=== PATIENT | female | born 1955 | race Hispanic/Latino ===

== ENCOUNTER 2023-10-05 07:04 | Observation (INO) | payer OTHER ==
[~2023-10-05] VITALS: Ht 154.9 cm; Wt 70.8 kg
[2023-10-05 07:43] LABS: BASOPHILS # (AUTO) 0.04 K/uL (0.00-0.20); BASOPHILS % (AUTO) 0.3 % (0.0-5.0); EOSINOPHILS # (AUTO) 0.01 K/uL (0.00-0.70); EOSINOPHILS % (AUTO) 0.1 % (0.0-8.0); HEMATOCRIT 33.9 % (36-48); IMMATURE GRANULOCYTE ABSOLUTE 0.11 K/uL (0-1); LYMPHOCYTES # (AUTO) 1.4 K/uL (1.0-4.8); LYMPHOCYTES % (AUTO) 9.7 % (21.0-51.0); MEAN CORPUSCULAR HEMOGLOBIN 29.1 pg (27.0-33.0); MEAN CORPUSCULAR HGB CONC 34.2 g/dL (32.0-36.0); MEAN CORPUSCULAR VOLUME 85.2 fL (79-99); MONOCYTES # (AUTO) 0.7 K/uL (0.1-1.0); MONOCYTES % (AUTO) 5.1 % (3.0-13.0); NEUTROPHILS # (AUTO) 11.8 K/uL (1.8-7.7); PLATELET COUNT (AUTO) 309 K/uL (130-400); RED BLOOD CELL COUNT(AUTO) 3.98 MIL/uL (4.00-5.50); RED CELL DISTRIBUTION WIDTH 12.4 % (11.0-15.5); WHITE BLOOD COUNT (AUTO) 14.1 K/uL (4.8-10.8)
[2023-10-05 07:57] LABS: ALBUMIN 4.1 g/dL (3.5-5.0); BILIRUBIN,TOTAL 0.3 mg/dL (0.2-1.0); CREATININE 1.7 mg/dL (0.5-1.5); POTASSIUM 3.8 mmol/L (3.5-5.1); TOTAL PROTEIN, SERUM 8.1 g/dL (6.0-8.3)
[2023-10-05 08:30] LABS: APPEARANCE,URINE CLEAR (CLEAR); BILIRUBIN,URINE NEGATIVE (NEGATIVE); COLOR,URINE LIGHT-YELLOW (YELLOW); GLUCOSE, URINE (UA) >=1000 mg/dL (NEGATIVE); KETONES,URINE 5 mg/dL (NEGATIVE); LEUKOCYTE ESTERASE ,URINE NEGATIVE Leu/uL (NEGATIVE); NITRATE,URINE NEGATIVE (NEGATIVE); OCCULT BLOOD,URINE LARGE (NEGATIVE); PROTEIN,URINE 10 mg/dL (NEGATIVE); UROBILINOGEN,URINE 0.2 mg/dL (0.2-1.0)
[2023-10-05] MEDS ORDERED: FENTANYL CITRATE PF 50 MCG/1 ML 2ML VIAL IVP ONE ×2 (08:30→09:30)
[2023-10-05 08:33] LABS: ADD UA MICROSCOPIC YES
[2023-10-05 08:38] LABS: RBC,URINE T /HPF (0-1)
[2023-10-05 08:39] LABS: BACTERIA,URINE None Seen /HPF (None Seen); MUCUS,URINE Rare LPF (None Seen); SQUAMOUS EPITHELIAL CELL,UR Rare /HPF (0-2)
[2023-10-05] MEDS ORDERED: ONDANSETRON 4MG INJ IVP ONE (09:30)
[2023-10-05] MEDS ORDERED: GUAIFENESIN-DM 200/20 MG 10 ML PO PRN (12:00)
[2023-10-05] MEDS ORDERED: MAGNESIUM 2GM PREMIX 50ML 50 ML IV PRN (12:00)
[2023-10-05] MEDS ORDERED: ONDANSETRON 4MG INJ IV PRN (12:00)
[2023-10-05] MEDS ORDERED: ZOLPIDEM TARTRATE 5 MG TAB PO PRN (12:00)
[2023-10-05] MEDS ORDERED: DiphenhydrAMINE HCL 50 MG/ML VIAL IV PRN (12:00)
[2023-10-05] MEDS ORDERED: POTASSIUM CHLORIDE 20MEQ/100ML 100 ML IV PRN ×2 (12:00)
[2023-10-05] MEDS ORDERED: POTASSIUM CHLORIDE 10% ELIXIR 20 MEQ/15 ML UDCUP PO PRN (12:00)
[2023-10-05] MEDS ORDERED: ALPRAZOLAM 0.5 MG TABLET PO PRN (12:00)
[2023-10-05] MEDS ORDERED: POLYETHYLENE GLYCOL 3350 17 GM POWD.PACK PO PRN (12:00)
[2023-10-05] MEDS ORDERED: DIPHENHYDRAMINE HCL 25 MG CAPSULE PO PRN (12:00)
[2023-10-05] MEDS ORDERED: DOCUSATE SODIUM 100 MG CAP PO PRN (12:00)
[2023-10-05] MEDS ORDERED: ACETAMINOPHEN 325 MG TAB PO PRN ×2 (12:00)
[2023-10-05] MEDS ORDERED: LACTULOSE 20 GM/30 ML UDCUP PO PRN (12:00)
[2023-10-05] MEDS ORDERED: KCL 20 MEQ ERTAB PO PRN (12:00)
[2023-10-05] MEDS ORDERED: NITROGLYCERIN 0.4 MG SL TAB SL PRN (12:00)
[2023-10-05] MEDS ORDERED: HYDROMORPHONE 0.5 MG SYG (0.5MG/0.5ML) ONE (12:01)
[2023-10-05] MEDS: CEFTRIAXONE 2GM VIAL IVPB SCH (13:16)
[2023-10-05] MEDS: HYDROMORPHONE 1 MG INJ IVP PRN ×2 (17:35→20:27)
[2023-10-05 20:00] VITALS: BP 107/44; PULSE 70; RESP 18; O2SAT 99
[2023-10-05] MEDS: FAMOTIDINE 20MG TAB PO SCH (20:27)
[2023-10-05] MEDS: INSULIN HUMULIN R 100 UNIT/ML 3ML SQ SCH (21:00)
[2023-10-06] VITALS (7 sets, daily range): BP systolic 102–144; BP diastolic 48–71; PULSE 71–77; RESP 18–20; O2SAT 96
[2023-10-06] MEDS: 0.9%NACL 1000ML 1,000 ML IV SCH ×3 (03:30→13:30)
[2023-10-06] MEDS: INSULIN HUMULIN R 100 UNIT/ML 3ML SQ SCH ×4 (06:38→21:18)
[2023-10-06 07:52] LABS: BASOPHILS # (AUTO) 0.03 K/uL (0.00-0.20); BASOPHILS % (AUTO) 0.3 % (0.0-5.0); EOSINOPHILS # (AUTO) 0.01 K/uL (0.00-0.70); EOSINOPHILS % (AUTO) 0.1 % (0.0-8.0); HEMATOCRIT 30.8 % (36-48); IMMATURE GRANULOCYTE ABSOLUTE 0.05 K/uL (0-1); LYMPHOCYTES # (AUTO) 2.1 K/uL (1.0-4.8); LYMPHOCYTES % (AUTO) 20.7 % (21.0-51.0); MEAN CORPUSCULAR HEMOGLOBIN 28.9 pg (27.0-33.0); MEAN CORPUSCULAR HGB CONC 33.8 g/dL (32.0-36.0); MEAN CORPUSCULAR VOLUME 85.6 fL (79-99); MONOCYTES # (AUTO) 0.8 K/uL (0.1-1.0); MONOCYTES % (AUTO) 8.4 % (3.0-13.0); PLATELET COUNT (AUTO) 254 K/uL (130-400)
[2023-10-06 08:09] LABS: CREATININE 1.4 mg/dL (0.5-1.5); MAGNESIUM 1.4 mg/dL (1.80-2.40); POTASSIUM 3.9 mmol/L (3.5-5.1)
[2023-10-06] MEDS ORDERED: SIMV-43 PO (09:12)
[2023-10-06] MEDS ORDERED: METF-444 PO (09:12)
[2023-10-06] MEDS ORDERED: OMEP20CA12 PO (09:12)
[2023-10-06] MEDS ORDERED: GLIP10TA19 PO (09:12)
[2023-10-06] MEDS ORDERED: AMLO-257 PO (09:12)
[2023-10-06] MEDS ORDERED: LISI1TAB53 PO (09:12)
[2023-10-06] MEDS: CEFTRIAXONE 2GM VIAL IVPB SCH (12:46)
[2023-10-06] MEDS ORDERED: SIMVASTATIN 20 MG TABLET PO SCH (21:00)
[2023-10-06] MEDS: FAMOTIDINE 20MG TAB PO SCH (21:14)
[2023-10-06] MEDS: TAMSULOSIN HCL 0.4 MG CAP.ER.24H PO SCH (23:51)
[2023-10-07 00:36] VITALS: BP 136/71; PULSE 75; RESP 18
[2023-10-07] MEDS: 0.9%NACL 1000ML 1,000 ML IV SCH (02:45)
[2023-10-07 03:55] LABS: BASOPHILS # (AUTO) 0.02 K/uL (0.00-0.20); BASOPHILS % (AUTO) 0.3 % (0.0-5.0); EOSINOPHILS # (AUTO) 0.05 K/uL (0.00-0.70); EOSINOPHILS % (AUTO) 0.7 % (0.0-8.0); HEMATOCRIT 30.4 % (36-48); IMMATURE GRANULOCYTE ABSOLUTE 0.05 K/uL (0-1); LYMPHOCYTES # (AUTO) 2.3 K/uL (1.0-4.8); LYMPHOCYTES % (AUTO) 31.1 % (21.0-51.0); MEAN CORPUSCULAR HEMOGLOBIN 29.6 pg (27.0-33.0); MEAN CORPUSCULAR HGB CONC 34.5 g/dL (32.0-36.0); MEAN CORPUSCULAR VOLUME 85.6 fL (79-99); MONOCYTES # (AUTO) 0.8 K/uL (0.1-1.0); MONOCYTES % (AUTO) 10.4 % (3.0-13.0); NEUTROPHILS # (AUTO) 4.1 K/uL (1.8-7.7); NEUTROPHILS % (AUTO) 56.8 % (40.0-77.0); PLATELET COUNT (AUTO) 247 K/uL (130-400); RED BLOOD CELL COUNT(AUTO) 3.55 MIL/uL (4.00-5.50); RED CELL DISTRIBUTION WIDTH 12.5 % (11.0-15.5); WHITE BLOOD COUNT (AUTO) 7.2 K/uL (4.8-10.8)
[2023-10-07 04:03] LABS: CREATININE 1.2 mg/dL (0.5-1.5); POTASSIUM 3.5 mmol/L (3.5-5.1)
[2023-10-07 04:29] VITALS: BP 145/60; PULSE 94; RESP 18
[2023-10-07] MEDS: INSULIN HUMULIN R 100 UNIT/ML 3ML SQ SCH ×2 (06:35→11:30)
[2023-10-07 07:45] VITALS: O2SAT 97
[2023-10-07 08:00] VITALS: BP 130/58; PULSE 80; RESP 18
[2023-10-07] MEDS ORDERED: PANTOPRAZOLE 40 MG TAB DR PO SCH (09:00)
[2023-10-07] MEDS ORDERED: NON-FORMULARY MEDICATION 1 EACH (Omeprazole 20 MG) PO SCH (09:00)
[2023-10-07] MEDS ORDERED: AMLODIPINE 5 MG TAB PO SCH (09:00)
[2023-10-07] MEDS: TAMSULOSIN HCL 0.4 MG CAP.ER.24H PO SCH (11:16)
[2023-10-07] MEDS: CEFTRIAXONE 2GM VIAL IVPB SCH (11:17)
[2023-10-07 12:00] VITALS: BP 141/80; PULSE 96; RESP 18
[2023-10-07] MEDS ORDERED: TAMS-1 PO (15:15)
[2023-10-07] MEDS ORDERED: CIPR-278 PO (15:17)
== END 2023-10-07 15:50 | disposition home or self-care (01) ==
LOC: EDH 07:04 → EDHIP 11:54 → 4AH 10-06 06:35
PROVIDERS: ADMIT Internal Medicine; ATTEND Internal Medicine
DX: N13.2 Hydronephrosis with renal and ureteral calculous obstruction (principal); N17.9 Acute kidney failure, unspecified; E11.65 Type 2 diabetes mellitus with hyperglycemia; E78.5 Hyperlipidemia, unspecified; D72.829 Elevated white blood cell count, unspecified; E66.9 Obesity, unspecified; N28.9 Disorder of kidney and ureter, unspecified; I10 Essential (primary) hypertension; Z68.31 Body mass index [BMI] 31.0-31.9, adult; Z79.84 Long term (current) use of oral hypoglycemic drugs; Z88.5 Allergy status to narcotic agent
CPT/HCPCS: 96374; 96376 ×3; 96375; 99285; 80053; 85025 ×3; 82948 ×7; 81001; 36415 ×3; 74176; 96361 ×3; 83735; 80048 ×2; 76770; G0378 ×52; J3010 ×2; J1170 ×3; J0696 ×3; J2405; J1815; J3475

== ENCOUNTER → 2023-12-20 | Outpatient (CLI) | payer OTHER ==
[~2023-12-20] MED LIST: AMLO-257 PO; CIPR-278 PO; GLIP10TA19 PO; LISI1TAB53 PO; METF-444 PO; OMEP20CA12 PO; SIMV-43 PO; TAMS-1 PO
== END | disposition home or self-care (01) ==
LOC: RAH 08:18
PROVIDERS: ATTEND Internal Medicine
DX: N20.0 Calculus of kidney (principal); N18.31 Chronic kidney disease, stage 3a
CPT/HCPCS: 76700